=== PATIENT | female | born 1985 | race African-American/Black ===

== ENCOUNTER 2017-03-04 16:44 | Emergency (ER) | payer OTHER ==
[2017-03-04 16:52] VITALS: BP 136/78; PULSE 79; TEMP 98; BMI 27.3
[2017-03-04] MEDS ORDERED: IBUPROFEN 100 MG/5 ML UNIT DOSE CUPS PO ONE (18:29)
--- NOTE | 2017-03-04 18:31 | PDOC ---
History of Present Illness - General Chief Complaint: Injury Stated Complaint: INJURY Time Seen by Provider: 03/04/17 18:02 History Source: Patient Exam Limitations: No Limitations - History of Present Illness Initial Comments: 03/04/17 18:32 Patient was leaving work today at [employer] when another person was opening door as she was closing hers causing the heavy door to hit her in the left side her face striking her nose, and left brow. There was no LOC , but patient states had bilateral nose bleed. Denies dental injury but states has some mild tenderness to her left upper lip. No dizziness, has some mild headache pain, but did not feel there is any other significant injury then her nose. 03/04/17 18:33 03/04/17 18:35 Occurred: reports: this afternoon Severity: reports: mild, moderate Pain Location: reports: face, head Method of Injury: Yes: direct blow Modifying Factors: improves with: cold therapy Loss of Consciousness: no loss of consciousness Associated Symptoms (Fall): denies symptoms Past History - Travel Traveled outside of the country in the last 30 days: No Close contact w/someone who was outside of country & ill: No - Past Medical History Allergies/Adverse Reactions: Allergies Allergy/AdvReac Type Severity Reaction Status Date / Time No Known Drug Allergies Allergy Verified 03/04/17 16:52 Home Medications: Ambulatory Orders Ibuprofen Oral Suspension [Motrin Oral Suspension -] 400 mg PO Q6H PRN #120 ml 03/04/17 Oxycodone HCl/Acetaminophen [Percocet 5-325 mg Tablet -] 1 - 2 tab PO Q4H PRN # 20 tablet MDD 6 03/04/17 Anemia: No Asthma: No Cancer: No Cardiac Disorders: Yes (ARRYTHMIA INTERMITTENTLY,cardiac ablasion) CVA: No COPD: No CHF: No DVT: No Dementia: No Diabetes: No Dialysis: No GI Disorders: No Disorders: No HTN: Yes Hypercholesterolemia: No HIV: No Kidney Stones: No Liver Disease: No Psychiatric Problems: No Seizures: No Thyroid Disease: No Lung CA: No - Surgical History Abdominal Surgery: No Appendectomy: No Cardiac Surgery: No Cholecystectomy: No Gastric Stapling: No GI Surgery: No Lung Surgery: No Neurologic Surgery: No - Psycho/Social/Smoking Cessation Hx Suicidal Ideation: No Smoking Status: Yes Smoking History: Current every day smoker Have you smoked in the past 12 months: No Number of Cigarettes Smoked Daily: 5 If you are a former smoker, when did you quit?: 2012 Information on smoking cessation initiated: Yes 'Breaking Loose' booklet given: 03/04/17 Hx Alcohol Use: No Drug/Substance Use Hx: No Substance Use Type: None Trauma Specific PMHX - Complaint Specific PMHX Arthritis: No Review of Systems - Review of Systems Able to Perform ROS?: Yes Is the patient limited Mohawk proficient: Yes Constitutional: Yes: Symptoms Reported, See HPI, Malaise. No: Fever HEENTM: Yes: Symptoms Reported, See HPI, Nose Pain (to bridge), Nose Congestion , Nose Bleeding Respiratory: No: Symptoms reported Cardiac (ROS): No: Symptoms Reported ABD/GI: No: Symptoms Reported Musculoskeletal: No: Symptoms Reported Integumentary: Yes: Symptoms Reported, See HPI, Bruising Neurological: Yes: Symptoms reported, See HPI, Headache (mild ) All Other Systems: Reviewed and Negative *Physical Exam - Vital Signs Last Vital Signs Temp Pulse Resp BP Pulse Ox 98 F 79 17 136/78 99 03/04/17 16:50 03/04/17 16:50 03/04/17 16:50 03/04/17 16:50 03/04/17 16:50 - Physical Exam General Appearance: Yes: Nourished, Appropriately Dressed, Apparent Distress, Mild Distress, Moderate Distress HEENT: positive: ASHLEY, TMs Normal (clear without hemotympanum, drainage from ears. No whalen signs.), Other (EOM ring and tenderness to the bridge of nose extending from nasal crease and down through her entire nose. Has no active bleeding noted through either nostril, no septal hematoma.). negative: Normal ENT Inspection Neck: positive: Supple, Other (fine tenderness crepitus or step-offs. Has full range of motion to neck). negative: Tender Respiratory/Chest: negative: Chest Tender Musculoskeletal: positive: Normal Inspection Integumentary: positive: Normal Color, Warm, Swelling, Ecchymosis Neurologic: positive: inpatient coder II-XII NML intact, Fully Oriented, Alert, Normal Mood/ Affect, Normal Response, Motor Strength 5/5 Progress Note - Progress Note Progress Note: Facial contusion/ nasal fracture with clinical correlation. Patient encouraged to follow-up with ear nose and throat doctor for reevaluation 1 swelling resolves. Given #10 Percocet tablets, *DC/Admit/Observation/Transfer Diagnosis at time of Disposition: Nasal bone fracture Qualifiers: Encounter type: initial encounter Fracture type: closed Qualified Code(s): S02.2XXA - Fracture of nasal bones, initial encounter for closed fracture Head injury Qualifiers: Encounter type: initial encounter Qualified Code(s): S09.90XA - Unspecified injury of head, initial encounter - Discharge Dispostion Disposition: HOME Condition at time of disposition: Stable Admit: No - Referrals Referrals: rPudence Odonnell MD [Primary Care Provider] - - Patient Instructions Printed Discharge Instructions: DI for Nose Fracture, DI for Closed Head Injury Additional Instructions: Hold pressure to both nostrils leaning head forward, for 10 minutes using paper towel or Kleenex. If nosebleed does not stop repeat for an additional 10 minutes If nosebleed still does not. Seek medical evaluation Once nosebleed has resolved, may use Vaseline or bacitracin ointment just in the anterior aspect of nostrils to keep airways moist Drink lots of fluids to replace any blood loss Remember that blood can cause an upset stomach and or diarrhea if swallowed Consider humidifier in room at night to avoid drying of mucous membranes Never uses any instrument/Q-tips/fingers into nostrils to avoid dislodging scabbing and recurrence of bleeding Do not blow nose, and do not put any cotton balls or Kleenex into nose to help stop bleeding If nosebleeds occur frequently have evaluation by ear nose and throat doctor for possible further treatment and cauterization Return to emergency department for inability to stop nosebleed, lightheadedness , fevers, or any other worsened symptoms - Post Discharge Activity Work/School Note: Back to Work
[2017-03-04] MEDS ORDERED: IBUPROFEN 100 MG/5 ML UNIT DOSE CUPS ONE (18:32)
== END 2017-03-04 19:54 | disposition home or self-care (01) ==
LOC: JERFT 16:44
DX: S02.2XXA Fracture of nasal bones, initial encounter for closed fracture (principal); S00.83XA Contusion of other part of head, initial encounter; W20.8XXA Other cause of strike by thrown, projected or falling object, initial encounter; Y93.89 Activity, other specified; Y92.238 Other place in hospital as the place of occurrence of the external cause; Y99.0 Civilian activity done for income or pay
CPT/HCPCS: 70150-TC; 99281-25

== ENCOUNTER 2017-06-30 12:40 | Emergency (ER) | payer OTHER ==
[2017-06-30 13:05] VITALS: BMI 27.2
--- NOTE | 2017-06-30 13:30 | PDOC ---
History of Present Illness - General Chief Complaint: Vaginal Bleeding Stated Complaint: VAGINAL BLEEDING, 9WKS Time Seen by Provider: 06/30/17 13:26 History Source: Patient - History of Present Illness Initial Comments: 06/30/17 14:07 36F , 9 weeks female presents with painless brownish vaginal spotting since Thursday after intercourse with . was induced by Clomiphene after trying for a year, although first with different partner 6 years ago was successful without help. PAtient had her last transvaginal ultrasound on Thursday but hasn't been told the results. Was told by Dr. Mayers earlier in the that she might have a missed due to lower than expected beta-HCG but number kept increasing each visit. Last period was April 22. 06/30/17 14:32 Past History - Past Medical History Allergies/Adverse Reactions: Allergies Allergy/AdvReac Type Severity Reaction Status Date / Time No Known Drug Allergies Allergy Verified 06/30/17 13:02 Home Medications: Ambulatory Orders NK [No Known Home Medication] 06/30/17 Anemia: No Asthma: No Cancer: No Cardiac Disorders: Yes (ARRYTHMIA INTERMITTENTLY,cardiac ablasion) CVA: No COPD: No CHF: No DVT: No Dementia: No Diabetes: No Dialysis: No GI Disorders: No Disorders: No HTN: Yes (BORDER LINE) Hypercholesterolemia: No HIV: No Kidney Stones: No Liver Disease: No Psychiatric Problems: No Seizures: No Thyroid Disease: No Lung CA: No - Surgical History Abdominal Surgery: No Appendectomy: No Cardiac Surgery: No Cholecystectomy: No Gastric Stapling: No GI Surgery: No Lung Surgery: No Neurologic Surgery: No - Psycho/Social/Smoking Cessation Hx Anxiety: No Suicidal Ideation: No Smoking Status: Yes Smoking History: Never smoked Have you smoked in the past 12 months: No Number of Cigarettes Smoked Daily: 5 If you are a former smoker, when did you quit?: 2012 Information on smoking cessation initiated: No 'Breaking Loose' booklet given: 03/04/17 Hx Alcohol Use: No Drug/Substance Use Hx: No Substance Use Type: None Abd/GI Specific PMHX - Complaint Specific PMHX GERD: No GI Ulcer Disease: No Review of Systems - Review of Systems Constitutional: No: Symptoms Reported HEENTM: No: Symptoms Reported Respiratory: No: Symptoms reported Cardiac (ROS): No: Symptoms Reported ABD/GI: No: Symptoms Reported : No: Symptoms Reported Musculoskeletal: No: Symptoms Reported Integumentary: No: Symptoms Reported Neurological: No: Symptoms reported *Physical Exam - Vital Signs Last Vital Signs Temp Pulse Resp BP Pulse Ox 98.3 F 68 18 137/68 100 06/30/17 13:03 06/30/17 13:03 06/30/17 13:03 06/30/17 13:03 06/30/17 13:03 - Physical Exam General Appearance: Yes: Nourished, Appropriately Dressed HEENT: positive: EOMI, ASHLEY, Normal ENT Inspection Neck: negative: Tender Respiratory/Chest: positive: Lungs Clear, Normal Breath Sounds. negative: Chest Tender Cardiovascular: positive: Regular Rhythm, Regular Rate, S1, S2 Vascular Pulses: Dorsalis-Pedis (R): 2+, Doralis-Pedis (L): 2+ Female Pelvic Exam: positive: normal external exam, discharge, vaginal bleeding. negative: cervical os closed (2mm open with heavy brownish discharge in the cul-de-sac) Gastrointestinal/Abdominal: positive: Normal Bowel Sounds, Soft. negative: Tender ED Treatment Course - LABORATORY CBC & Chemistry Diagram: 06/30/17 13:31 06/30/17 13:31 Medical Decision Making - Medical Decision Making 06/30/17 14:31 32F 9w presents with vaginal spotting for 2 days. labs, type and cross and beta-hcg ordered 06/30/17 14:32 transvaginal U/S pending 06/30/17 15:52 Received call from radiology attending who said theres was no sign of gestational sac in uterus but small mass in right adnexa. Ectopic until proved otherwise. Trying to reach Dr. Mayers to correlate with previous ultrasound performed. 06/30/17 15:53 06/30/17 16:04 Spoke to SURY Smith electronic sensing equipment assembler at [facility] who will call me back with previous data from patient. He said that her beta-hcg of 1059 is too low at this stage of the to to be a viable . Will call back to confirm if there ever was a intrauterine sac to begin with. 06/30/17 16:30 Spoke to OBJUDIN electronic sensing equipment assembler Dr. Zamora who recommended that the patient follow up outpatient with Dr. Mayers for repeat US and beta-HCG given the absence of pain and Clomiphene used before . Cannot exclude ectopic but less likely. Still waiting electronic sensing equipment assembler back from [facility]. 06/30/17 16:39 06/30/17 16:39 *DC/Admit/Observation/Transfer Diagnosis at time of Disposition: Missed with demise before 20 completed weeks of gestation - Discharge Dispostion Disposition: HOME Admit: No - Patient Instructions Printed Discharge Instructions: Dealing With Miscarriage Additional Instructions: Follow up outpatient with Dr. Mayers or [facility] as soon as possible
[2017-06-30 14:53] LABS: ALBUMIN 3.9 g/dl (3.4-5.0); ANION GAP 7 (8-16); BASOPHIL 0.3 % (0-2.0); BILIRUBIN,TOTAL 0.3 mg/dL (0.2-1.0); CALCIUM 8.7 mg/dL (8.5-10.1); CO2 26 mmol/L (21-32); CREATININE 0.8 mg/dL (0.55-1.02); EOSINOPHIL 0.8 % (0-4.5); GLUCOSE,RANDOM 100 mg/dL (74-106); MCH 30.5 pg (25.7-33.7); MCHC 32.5 g/dl (32.0-36.0); MEAN PLT VOLUME 7.4 fl (7.5-11.1); NEUTROPHILS 60.6 % (42.8-82.8); PLATELET COUNT 262 K/MM3 (134-434); RDW 13.8 % (11.6-15.6); SGOT/AST 15 U/L (15-37); SGPT/ALT 25 U/L (12-78); TOT PROT 7.3 g/dl (6.4-8.2); WHITE BLOOD COUNT 8.8 K/mm3 (4.0-10.0)
[2017-06-30 14:59] LABS: URINE APPEARANCE SLCLOUDY; URINE BILIRUBIN NEGATIVE (NEGATIVE); URINE BLOOD 3+ (NEGATIVE); URINE COLOR YELLOW; URINE GLUCOSE (UA) NEGATIVE (NEGATIVE); URINE KETONE NEGATIVE (NEGATIVE); URINE LEUK ESTERASE NEGATIVE (NEGATIVE); URINE NITRITE NEGATIVE (NEGATIVE); URINE PROTEIN NEGATIVE (NEGATIVE); URINE UROBILINOGEN NEGATIVE mg/dL (0.2-1.0)
[2017-06-30 15:08] LABS: ALK PHOS 58 U/L (45-117)
[2017-06-30 15:51] LABS: URINE MUCUS FEW; URINE RBC 3 /hpf (0-3); URINE WBC 4 /hpf (3-5)
--- NOTE | 2017-06-30 16:20 | PDOC ---
Attending Attestation - Resident Resident Name: Remi Santos - ED Attending Attestation I have performed the following: I have examined & evaluated the patient, The case was reviewed & discussed with the resident, I agree w/resident's findings & plan, Exceptions are as noted - HPI HPI: 06/30/17 16:15 32 F @ 9 weeks gestation by LMP presents to ER with vaginal bleeding. Pt reports 3 days of brown spotting. She notes that today she began to pass clots as well. Denies any significant pain at this time. Denies F/C. Denies N/V. - Physicial Exam PE: 06/30/17 16:21 "GENERAL: Awake, alert, and fully oriented, in no acute distress HEAD: No signs of trauma EYES: PERRLA, EOMI, sclera anicteric, conjunctiva clear ENT: Auricles normal inspection, hearing grossly normal, nares patent, oropharynx clear without exudates. Moist mucosa NECK: Normal ROM, supple, no lymphadenopathy, JVD, or masses LUNGS: Breath sounds equal, clear to auscultation bilaterally. No wheezes, and no crackles HEART: Regular rate and rhythm, normal S1 and S2, no murmurs, rubs or gallops ABDOMEN: Soft, nontender, normoactive bowel sounds. No guarding, no rebound. No masses : blood clots in vault, no active bleeding from os, os closed, no CMT EXTREMITIES: Normal range of motion, no edema. No clubbing or cyanosis. No cords, erythema, or tenderness NEUROLOGICAL: Cranial nerves II through XII grossly intact. Normal speech, normal gait SKIN: Warm, Dry, normal turgor, no rashes or lesions noted. " - Medical Decision Making 06/30/17 16:22 32 F @ 9 weeks by LMP presenting with vaginal bleeding. TVUS shows no IUP. - OB consult 06/30/17 17:35 Discussed case with OB who recommends rapid outpt f/u. Pt instructed on importance of f/u within 48 hours. Pt expresses understanding and will call her OB tomorrow.
[2017-06-30 17:06] VITALS: BP 126/72; PULSE 73; TEMP 98.2
== END 2017-06-30 17:06 | disposition home or self-care (01) ==
LOC: JER 12:40
DX: O02.1 Missed abortion (principal); Z3A.09 9 weeks gestation of pregnancy; I49.9 Cardiac arrhythmia, unspecified
CPT/HCPCS: 36415; 76801-TC; 76830-TC; 80053; 81003; 81015; 84702; 84703; 85025; 86850; 86900; 86901; 99283-25

== ENCOUNTER 2017-08-08 19:10 | Emergency (ER) | payer OTHER ==
[2017-08-08 19:16] VITALS: BP 143/83; PULSE 75; TEMP 98.4; BMI 27.7
[2017-08-08] MEDS: SODIUM CHLORIDE 1,000 ML IV STA ×2 (20:40→20:57)
[2017-08-08 20:43] LABS: BASOPHIL 0.2 % (0-2.0); EOSINOPHIL 0.5 % (0-4.5); MCH 31.2 pg (25.7-33.7); MCHC 33.3 g/dl (32.0-36.0); MEAN CELL VOLUME 93.9 fl (80-96); MEAN PLT VOLUME 7.3 fl (7.5-11.1); PLATELET COUNT 252 K/MM3 (134-434); RDW 13.5 % (11.6-15.6); WHITE BLOOD COUNT 10.1 K/mm3 (4.0-10.0)
[2017-08-08 20:45] LABS: URINE APPEARANCE CLEAR; URINE BILIRUBIN NEGATIVE (NEGATIVE); URINE BLOOD NEGATIVE (NEGATIVE); URINE COLOR YELLOW; URINE GLUCOSE (UA) NEGATIVE (NEGATIVE); URINE KETONE TRACE (NEGATIVE); URINE LEUK ESTERASE NEGATIVE (NEGATIVE); URINE NITRITE NEGATIVE (NEGATIVE); URINE PROTEIN NEGATIVE (NEGATIVE)
[2017-08-08 21:09] LABS: ALBUMIN 3.8 g/dl (3.4-5.0); ANION GAP 5 (8-16); BILIRUBIN,TOTAL 0.3 mg/dL (0.2-1.0); CALCIUM 8.8 mg/dL (8.5-10.1); CO2 26 mmol/L (21-32); CREATININE 0.7 mg/dL (0.55-1.02); GLUCOSE,RANDOM 98 mg/dL (74-106); SGOT/AST 11 U/L (15-37); SGPT/ALT 16 U/L (12-78); TOT PROT 7.7 g/dl (6.4-8.2)
[2017-08-08 21:10] LABS: ALK PHOS 59 U/L (45-117)
--- NOTE | 2017-08-08 21:26 | PDOC ---
History of Present Illness - General Chief Complaint: Pain Stated Complaint: PELVIC PAIN Time Seen by Provider: 08/08/17 20:02 History Source: Patient Exam Limitations: No Limitations - History of Present Illness Travel History: No Initial Comments: 08/08/17 21:20 32yo Female patient with no significant past medical history presents to ED c/o pelvic pain that began 1 hours ago. Patient reports no OTC medication use. LNMP : Current. Patient states Jun 30 she experienced miscarriage, was given a prescription to have US done to r/o ectopic but did not. She denies n/v/d, fever , back pain, diff breathing, cough, congestion, or any other complaints at this time. Quality: reports: moderate Abdominal Pain Onset Location: reports: suprapubic Pain Radiation: reports: no radiation Past History - Travel Traveled outside of the country in the last 30 days: No Close contact w/someone who was outside of country & ill: No - Past Medical History Allergies/Adverse Reactions: Allergies Allergy/AdvReac Type Severity Reaction Status Date / Time No Known Drug Allergies Allergy Verified 08/08/17 19:16 Home Medications: Ambulatory Orders NK [No Known Home Medication] 06/30/17 Anemia: No Asthma: No Cancer: No Cardiac Disorders: Yes (ARRYTHMIA INTERMITTENTLY,cardiac ablasion) CVA: No COPD: No CHF: No DVT: No Dementia: No Diabetes: No Dialysis: No GI Disorders: No Disorders: No HTN: Yes (BORDER LINE) Hypercholesterolemia: No Kidney Stones: No Liver Disease: No Psychiatric Problems: No Seizures: No Thyroid Disease: No Lung CA: No - Surgical History Abdominal Surgery: No Appendectomy: No Cardiac Surgery: Yes (cardiac ablasion) Cholecystectomy: No Gastric Stapling: No GI Surgery: No Lung Surgery: No Neurologic Surgery: No - Reproductive History Is Patient Now?: No (#): 1 Para: 1 Cervical CA: No Dysfunctional Uterine Bleeding: No Ectopic : No Endometrial CA: No Polycystic Ovaries: No Therapeutic (s) & number: No Tubal Ligation: No Spontaneous : 1 - Suicide/Smoking/Psychosocial Hx Smoking Status: Yes Smoking History: Current every day smoker Have you smoked in the past 12 months: Yes Number of Cigarettes Smoked Daily: 4 If you are a former smoker, when did you quit?: 2012 Information on smoking cessation initiated: No 'Breaking Loose' booklet given: 03/04/17 Hx Alcohol Use: No Drug/Substance Use Hx: No Substance Use Type: None Abd/GI Specific PMHX - Complaint Specific PMHX Colitis: No Diverticulitis: No Gall Bladder Disease: No GERD: No Hepatitis: No Irritable Bowel Synd (IBS): No Pancreatitis: No GI Ulcer Disease: No Review of Systems - Review of Systems Able to Perform ROS?: Yes Is the patient limited Frisian proficient: No Constitutional: No: Chills, Fever Respiratory: No: Shortness of Breath, Wheezing Cardiac (ROS): No: Chest Pain ABD/GI: No: Diarrhea, Nausea, Poor Appetite, Vomiting : No: Burning, Dysuria All Other Systems: Reviewed and Negative *Physical Exam - Vital Signs Last Vital Signs Temp Pulse Resp BP Pulse Ox 98.4 F 75 18 143/83 100 08/08/17 19:13 08/08/17 19:13 08/08/17 19:13 08/08/17 19:13 08/08/17 19:13 - Physical Exam General Appearance: Yes: Nourished, Appropriately Dressed. No: Apparent Distress, Mild Distress, Moderate Distress, Severe Distress Respiratory/Chest: positive: Lungs Clear, Normal Breath Sounds. negative: Chest Tender, Respiratory Distress, Accessory Muscle Use, Labored Respiration, Rapid RR Cardiovascular: positive: Regular Rhythm, Regular Rate. negative: Edema, Murmur Gastrointestinal/Abdominal: positive: Normal Bowel Sounds, Tender, Soft, Rebound , Tenderness (Right suprapubic/ RLQ Pain). negative: Distended, Guarding Musculoskeletal: positive: Normal Inspection. negative: CVA Tenderness Extremity: positive: Normal Capillary Refill, Normal Inspection, Normal Range of Motion. negative: Pedal Edema, Swelling, Calf Tenderness, Erythema, Inflammation Integumentary: positive: Normal Color, Dry, Warm Neurologic: positive: log scaler II-XII NML intact, Fully Oriented, Alert, Normal Mood/ Affect, Normal Response, Motor Strength 03/20 ED Treatment Course - LABORATORY CBC & Chemistry Diagram: 08/08/17 20:38 08/08/17 20:38 - ADDITIONAL ORDERS Additional order review: Laboratory Results 08/08/17 20:38 Sodium 138 Potassium 3.7 Chloride 107 Carbon Dioxide 26 Anion Gap 5 L BUN 15 D Creatinine 0.7 Creat Clearance w eGFR > 60 Random Glucose 98 Calcium 8.8 Total Bilirubin 0.3 AST 11 L D ALT 16 D Alkaline Phosphatase 59 Total Protein 7.7 Albumin 3.8 08/08/17 20:38 RBC 3.95 MCV 93.9 MCHC 33.3 RDW 13.5 MPV 7.3 L Neutrophils % 68.0 Lymphocytes % 24.6 D Monocytes % 6.7 Eosinophils % 0.5 Basophils % 0.2 - RADIOLOGY Radiology Studies Ordered: Category Date Time Status PELVIS(OTHER) US [US] Stat Ultrasound 08/08/17 20:12 Ordered TRANSVAGINAL ULTRASOUND US [US] Stat Ultrasound 08/08/17 20:12 Ordered - Medications Given in the ED: ED Medications Discontinued Medications Generic Name Dose Route Start Last Admin Trade Name Freq PRN Reason Stop Dose Admin Sodium Chloride 1,000 mls @ 1,000 mls/hr 08/08/17 20:13 08/08/17 20:57 Normal Saline - IV 08/08/17 21:12 Not Given ASDIR STA *DC/Admit/Observation/Transfer Diagnosis at time of Disposition: Cyst of ovary Qualifiers: Laterality: right Qualified Code(s): N83.201 - Unspecified ovarian cyst, right side - Discharge Dispostion Disposition: HOME Condition at time of disposition: Improved Admit: No - Patient Instructions Printed Discharge Instructions: DI for Ovarian Cyst, DI for Ovarian Cyst Removal Additional Instructions: FOLLOW UP WITH YOUR ASSISTANT OCEANOGRAPHER THIS WEEK FOR FURTHER EVALUATION. MOTRIN FOR PAIN NEEDED. RETURN IF SYMPTOMS WORSEN OR ANY CONCERNS FOR FURTHER EVALUATION. Print Language: SERBIAN
== END 2017-08-08 23:57 | disposition home or self-care (01) ==
LOC: JER 19:10
PROC: 3E0237Z Introduction of Electrolytic and Water Balance Substance into Muscle, Percutaneous Approach (ICD-10-PCS; principal; 2017-08-08)
DX: N83.201 Unspecified ovarian cyst, right side (principal); F17.210 Nicotine dependence, cigarettes, uncomplicated
CPT/HCPCS: 36415; 76830-TC; 76856-TC; 80053; 81003; 84703; 85025; 99284-25

== ENCOUNTER 2018-02-19 19:17 | Emergency (ER) | payer SELFPAY ==
--- NOTE | 2018-02-19 19:51 | PDOC ---
Rapid Medical Evaluation Time Seen by Provider: 02/19/18 19:48 Medical Evaluation: Allergies Allergy/AdvReac Type Severity Reaction Status Date / Time No Known Drug Allergies Allergy Verified 02/19/18 19:47 02/19/18 19:48 I have performed a brief in-person evaluation of this patient. The patient presents with a chief complaint of: 8 wks , N/V 3-4x daily, unable to keep food down, feeling weak, no meds, followed by Dr. Santoro Pertinent physical exam findings: well appearing I have ordered the following: labs The patient will proceed to the ED for further evaluation. Discharge Disposition - Diagnosis Vomiting affecting - Referrals - Patient Instructions - Post Discharge Activity
[2018-02-19 19:52] VITALS: BP 108/71; PULSE 82; TEMP 98.6; BMI 27.1
[2018-02-19] MEDS ORDERED: SODIUM CHLORIDE 1,000 ML IV STA (20:58)
[2018-02-19] MEDS ORDERED: ONDANSETRON 4 MG/2 ML VIAL IVPUSH ONE (20:59)
--- NOTE | 2018-02-19 21:00 | PDOC ---
History of Present Illness - General Chief Complaint: Nausea/Vomiting Stated Complaint: 8 weeks vomiting Time Seen by Provider: 02/19/18 19:48 History Source: Patient Exam Limitations: No Limitations - History of Present Illness Initial Comments: 02/19/18 21:03 This is a 33-year-old 3 para 1 who is 8 weeks 4 days presenting to the emergency department for nausea and vomiting for the past 2 weeks. Patient states she's had difficult time tolerating by mouth's over the past 2 weeks and is now unable to hold down anything including her vitamins. Patient denies any abdominal pain, vaginal bleeding, vaginal discharge , rectal bleeding, dysuria, hematuria. Past History - Past Medical History Allergies/Adverse Reactions: Allergies Allergy/AdvReac Type Severity Reaction Status Date / Time No Known Drug Allergies Allergy Verified 02/19/18 19:47 Home Medications: Ambulatory Orders Ondansetron [Zofran Odt -] 4 mg SL TID #21 od.tablet 02/20/18 Anemia: No Asthma: No Cancer: No Cardiac Disorders: Yes (ARRYTHMIA INTERMITTENTLY,cardiac ablasion) CVA: No COPD: No CHF: No DVT: No Dementia: No Diabetes: Yes (pre) Dialysis: No GI Disorders: No Disorders: No HTN: Yes (BORDER LINE) Hypercholesterolemia: No Kidney Stones: No Liver Disease: No Psychiatric Problems: No Seizures: No Thyroid Disease: No Lung CA: No - Surgical History Abdominal Surgery: No Appendectomy: No Cardiac Surgery: Yes (cardiac ablation) Cholecystectomy: No Gastric Stapling: No GI Surgery: No Lung Surgery: No Neurologic Surgery: No - Reproductive History (#): 1 Para: 1 Cervical CA: No Dysfunctional Uterine Bleeding: No Ectopic : No Endometrial CA: No Polycystic Ovaries: No Therapeutic (s) & number: No Tubal Ligation: No Spontaneous : 1 - Suicide/Smoking/Psychosocial Hx Smoking Status: Yes Smoking History: Former smoker Have you smoked in the past 12 months: Yes Number of Cigarettes Smoked Daily: 4 If you are a former smoker, when did you quit?: 2012 Information on smoking cessation initiated: No 'Breaking Loose' booklet given: 03/04/17 Hx Alcohol Use: No Drug/Substance Use Hx: No Substance Use Type: None Review of Systems - Review of Systems Able to Perform ROS?: Yes Is the patient limited Divehi proficient: No Constitutional: No: Symptoms Reported HEENTM: No: Symptoms Reported Respiratory: No: Symptoms reported Cardiac (ROS): No: Symptoms Reported ABD/GI: Yes: See HPI : No: Symptoms Reported Musculoskeletal: No: Symptoms Reported Integumentary: No: Symptoms Reported Neurological: No: Symptoms reported Endocrine: No: Symptoms Reported Hematologic/Lymphatic: No: Symptoms Reported *Physical Exam - Vital Signs Last Vital Signs Temp Pulse Resp BP Pulse Ox 98.6 F 82 18 108/71 100 02/19/18 19:49 02/19/18 19:49 02/19/18 19:49 02/19/18 19:49 02/19/18 19:49 - Physical Exam General Appearance: Yes: Appropriately Dressed. No: Apparent Distress HEENT: positive: Normal ENT Inspection Neck: positive: Trachea midline, Supple Respiratory/Chest: positive: Lungs Clear, Normal Breath Sounds. negative: Respiratory Distress, Accessory Muscle Use Cardiovascular: positive: Regular Rhythm, Regular Rate. negative: Murmur Gastrointestinal/Abdominal: positive: Normal Bowel Sounds, Soft. negative: Tender Musculoskeletal: positive: Normal Inspection. 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 BRAT diet discussed with patient. I will give the patient prescription for Zofran also. *DC/Admit/Observation/Transfer Diagnosis at time of Disposition: Vomiting affecting - Discharge Dispostion Disposition: HOME Condition at time of disposition: Stable Admit: No - Prescriptions Prescriptions: Ondansetron [Zofran Odt -] 4 mg SL TID #21 od.tablet - Referrals Referrals: Magalis Bahena MD [Primary Care Provider] - - Patient Instructions Additional Instructions: Start by eating bananas, rice, applesauce and toast. If you're able to tolerate these foods advance your diet by eating spices slowly. Take Zofran as prescribed Keep her appointments for EAR NOSE THROAT SURGEON on Thursday. Keep well hydrated. Return to emergency department for vaginal bleeding, vaginal discharge, abdominal cramping, unable to hold down any foods or any other concerns. Thank you very much for trees with provide emergent health care needs - Post Discharge Activity Forms/Work/School Notes: Back to Work
[2018-02-19] MEDS ORDERED: ONDANSETRON 4 MG/2 ML VIAL ONE (22:00)
[2018-02-19 22:18] LABS: BASO % 0.4 % (0-2.0); EOS % 0.3 % (0-4.5); HEMATOCRIT 36.8 % (32.4-45.2); HEMOGLOBIN 12.4 GM/dL (10.7-15.3); LYMPH % 24.5 % (8-40); MCH 31.1 pg (25.7-33.7); MCHC 33.6 g/dl (32.0-36.0); MEAN CELL VOLUME 92.6 fl (80-96); MEAN PLT VOLUME 7.4 fl (7.5-11.1); MONO % 7.3 % (3.8-10.2); NEUT % 67.5 % (42.8-82.8); PLATELET COUNT 280 K/MM3 (134-434); RBC 3.98 M/mm3 (3.60-5.2); RDW 12.7 % (11.6-15.6); WHITE BLOOD COUNT 10.4 K/mm3 (4.0-10.0)
[2018-02-19 22:27] LABS: URINE APPEARANCE SLCLOUDY; URINE BILIRUBIN NEGATIVE (<2.0 mg/dL); URINE BLOOD NEGATIVE (NEGATIVE); URINE COLOR YELLOW; URINE GLUCOSE (UA) NEGATIVE (NEGATIVE); URINE KETONE 2+ (NEGATIVE); URINE LEUK ESTERASE NEGATIVE (NEGATIVE); URINE NITRITE NEGATIVE (NEGATIVE); URINE UROBILINOGEN 4.0 E.U/dl mg/dL (0.2-1.0)
[2018-02-19 22:39] LABS: URINE PROTEIN 1+ (NEGATIVE)
[2018-02-19 22:40] LABS: ALBUMIN 3.9 g/dl (3.4-5.0); ALK PHOS 50 U/L (45-117); ANION GAP 9 (8-16); BILIRUBIN,TOTAL 0.3 mg/dL (0.2-1.0); BLOOD UREA NITROGEN 10 mg/dL (7-18); CALCIUM 9.4 mg/dL (8.5-10.1); CHLORIDE 104 mmol/L (98-107); CO2 24 mmol/L (21-32); CREATININE 0.6 mg/dL (0.55-1.02); GLUCOSE,RANDOM 74 mg/dL (74-106); POTASSIUM 3.8 mmol/L (3.5-5.1); SGOT/AST 10 U/L (15-37); SGPT/ALT 16 U/L (12-78); SODIUM 137 mmol/L (136-145)
[2018-02-19 22:47] LABS: EPI CELLS RARE /HPF (FEW); URINE MUCUS MANY
== END 2018-02-20 01:43 | disposition home or self-care (01) ==
LOC: JER 19:17
PROC: 3E0337Z Introduction of Electrolytic and Water Balance Substance into Peripheral Vein, Percutaneous Approach (ICD-10-PCS; principal; 2018-02-19)
PROC: 3E033GC Introduction of Other Therapeutic Substance into Peripheral Vein, Percutaneous Approach (ICD-10-PCS; 2018-02-19)
DX: O26.891 Other specified pregnancy related conditions, first trimester (principal); O21.0 Mild hyperemesis gravidarum; Z3A.08 8 weeks gestation of pregnancy
CPT/HCPCS: 36415; 80053; 81003; 81015; 85025; 87086; 99283-25; J7030

== ENCOUNTER 2023-05-09 22:18 | Emergency (ER) | payer OTHER ==
[2023-05-09 22:25] VITALS: RESP 20; TEMP 98.6; BMI 25.7
[2023-05-09 23:33] LABS: BASO % 0.3 % (0-2.0); EOS % 0.7 % (0-4.5); HEMATOCRIT 36.4 % (32.4-45.2); HEMOGLOBIN 12.2 GM/dL (10.7-15.3); LYMPH % 30.1 % (8-40); MCH 30.9 pg (25.7-33.7); MCHC 33.4 g/dl (32.0-36.0); MEAN CELL VOLUME 92.5 fl (80-96); MEAN PLT VOLUME 7.6 fl (7.5-11.1); MONO % 6.1 % (3.8-10.2); NEUT % 62.8 % (42.8-82.8); PLATELET COUNT 233 10^3/uL (134-434); RBC 3.94 M/mm3 (3.60-5.2); RDW 13.9 % (11.6-15.6); WHITE BLOOD COUNT 10.8 K/mm3 (4.0-10.0)
[2023-05-09 23:36] VITALS: BP 138/85; PULSE 84
[2023-05-09 23:47] LABS: POTASSIUM 3.9 mmol/L (3.5-5.1)
[2023-05-09 23:49] LABS: ALBUMIN 3.8 g/dl (3.4-5.0); BLOOD UREA NITROGEN 15.8 mg/dL (7-18); CALCIUM 9.3 mg/dL (8.5-10.1)
[2023-05-09 23:52] LABS: CREATININE 0.9 mg/dL (0.55-1.3)
[2023-05-09 23:54] LABS: BILIRUBIN,TOTAL 0.2 mg/dL (0.2-1); TOT PROT 7.6 g/dl (6.4-8.2)
== END 2023-05-10 00:27 | disposition home or self-care (01) ==
LOC: JER 22:18
DX: R42 Dizziness and giddiness (principal); F12.90 Cannabis use, unspecified, uncomplicated
CPT/HCPCS: 36415; 80053; 83735; 84484; 84703; 85025; 93005; 93010; 99284-25